=== PATIENT | female | born 1990 | race Caucasian/White ===

== ENCOUNTER 2021-02-19 22:50 | Emergency (ER) | payer OTHER ==
[~2021-02-19] VITALS: Ht 162.6 cm; Wt 54.4 kg
[2021-02-20] MEDS ORDERED: NORFLEX100MG PO (02:44)
[2021-02-20] MEDS ORDERED: MEDROLPACK PO (02:44)
[2021-02-20] MEDS ORDERED: PROTONIX20 MG PO (02:52)
[2021-02-20] MEDS ORDERED: PEPCID AC20 MG PO (02:52)
[2021-02-20] MEDS ORDERED: CARAFATE1 GM PO (02:52)
[2021-02-20] MEDS ORDERED: ACETAMINOPHEN650 M2 (03:01)
== END 2021-02-20 03:10 | disposition home or self-care (01) ==
LOC: ER 22:50
DX: R10.13 Epigastric pain (principal); M94.0 Chondrocostal junction syndrome [Tietze]

== ENCOUNTER 2021-06-20 08:07 | Outpatient (CLI) | payer OTHER ==
[~2021-06-20 08:07] MED LIST: ACETAMINOPHEN650 M2; CARAFATE1 GM PO; MEDROLPACK PO; NORFLEX100MG PO; PEPCID AC20 MG PO; PROTONIX20 MG PO
== END 2021-06-20 08:14 | disposition home or self-care (01) ==
LOC: RAD 08:07
PROVIDERS: ATTEND Internal Medicine Gastroenterology
DX: K59.09 Other constipation (principal)

== ENCOUNTER 2021-06-20 09:12 | Outpatient (CLI) | payer OTHER | END 2021-06-20 09:14 | disposition home or self-care (01) | LOC: LAB 09:12 | PROVIDERS: ATTEND Internal Medicine Gastroenterology | DX: D64.89 Other specified anemias (principal) ==

== ENCOUNTER 2021-07-22 08:14 | Outpatient (CLI) | payer OTHER | END 2021-07-22 08:15 | disposition home or self-care (01) | LOC: LAB 08:14 | PROVIDERS: ATTEND Obstetrics & Gynecology Obstetrics | DX: E78.00 Pure hypercholesterolemia, unspecified (principal); N39.0 Urinary tract infection, site not specified; E20.8 Other hypoparathyroidism; E55.9 Vitamin D deficiency, unspecified; E03.9 Hypothyroidism, unspecified; R10.2 Pelvic and perineal pain ==

== ENCOUNTER 2021-07-22 09:01 | Outpatient (CLI) | payer OTHER | END 2021-07-22 09:20 | disposition home or self-care (01) | LOC: SONOGRAMA 09:01 | PROVIDERS: ATTEND Obstetrics & Gynecology Obstetrics | DX: E28.2 Polycystic ovarian syndrome (principal) ==

== ENCOUNTER 2021-09-01 07:21 | Outpatient (CLI) | payer OTHER | END 2021-09-01 07:25 | disposition home or self-care (01) | LOC: LAB 07:21 | PROVIDERS: ATTEND Legal Medicine | DX: D64.9 Anemia, unspecified (principal); N39.9 Disorder of urinary system, unspecified; D68.9 Coagulation defect, unspecified; I10 Essential (primary) hypertension; E03.8 Other specified hypothyroidism; N91.2 Amenorrhea, unspecified ==

== ENCOUNTER 2021-09-19 07:43 | Outpatient (CLI) | payer OTHER | END 2021-09-19 07:44 | disposition home or self-care (01) | LOC: RAD 07:43 | PROVIDERS: ATTEND Internal Medicine Gastroenterology | DX: K59.00 Constipation, unspecified (principal) ==

== ENCOUNTER 2021-12-26 07:22 | Outpatient (CLI) | payer OTHER | END 2021-12-26 07:27 | disposition home or self-care (01) | LOC: RAD 07:22 | PROVIDERS: ATTEND Internal Medicine Gastroenterology | DX: K59.00 Constipation, unspecified (principal) ==

== ENCOUNTER 2023-02-05 05:50 | Emergency (ER) | payer OTHER ==
[~2023-02-05] VITALS: Ht 162.6 cm; Wt 54.4 kg
== END 2023-02-05 08:52 | disposition home or self-care (01) ==
LOC: ER 05:50
DX: S86.912A Strain of unspecified muscle(s) and tendon(s) at lower leg level, left leg, initial encounter (principal); Z88.6 Allergy status to analgesic agent; X50.3XXA Overexertion from repetitive movements, initial encounter; Y93.H2 Activity, gardening and landscaping; Y92.017 Garden or yard in single-family (private) house as the place of occurrence of the external cause; Y99.9 Unspecified external cause status
CPT/HCPCS: 73560; 96372; 99284; J3301

== ENCOUNTER 2023-02-09 07:25 | Outpatient (CLI) | payer OTHER | END 2023-02-09 07:29 | disposition home or self-care (01) | LOC: MRI 07:25 | PROVIDERS: ATTEND Emergency Medicine | DX: S86.912A Strain of unspecified muscle(s) and tendon(s) at lower leg level, left leg, initial encounter (principal) | CPT/HCPCS: 73721 ==

== ENCOUNTER 2023-08-01 09:41 | Outpatient (CLI) | payer OTHER | END 2023-08-01 09:47 | disposition home or self-care (01) | LOC: SONOGRAMA 09:41 | PROVIDERS: ATTEND Family Medicine | DX: R23.4 Changes in skin texture (principal) ==

== ENCOUNTER 2024-10-22 14:16 | Outpatient (CLI) | payer OTHER | END 2024-10-22 14:17 | disposition home or self-care (01) | LOC: PRENATAL 14:16 | PROVIDERS: ATTEND Obstetrics & Gynecology Maternal & Fetal Medicine | DX: O44.00 Complete placenta previa NOS or without hemorrhage, unspecified trimester (principal); Z3A.20 20 weeks gestation of pregnancy ==

== ENCOUNTER → 2025-01-19 08:16 | Outpatient (CLI) | payer OTHER | END | disposition home or self-care (01) | LOC: PRENATAL 08:16 | PROVIDERS: ATTEND Obstetrics & Gynecology Maternal & Fetal Medicine | DX: O26.849 Uterine size-date discrepancy, unspecified trimester (principal); O36.8199 Decreased fetal movements, unspecified trimester, other fetus; Z3A.32 32 weeks gestation of pregnancy ==